=== PATIENT | female | born 1970 | race Caucasian/White ===

== ENCOUNTER 2025-02-15 03:42 | Emergency (ER) | payer MEDICAID ==
[~2025-02-15] VITALS: Ht 160 cm; Wt 127.5 kg
--- NOTE | 2025-02-15 03:45 | Physician Documentation ---
History of Present Illness ~ Stated Complaint: RESPITORY DISTRESS Time Seen by MD: 03:44 HPI Patient presents to the emergency room brought in by EMS in severe respiratory distress on BiPAP. Patient apparently had a normal day and then while getting out of the shower this evening began having an asthma exacerbation. EMS on scene noted that patient was blue and has one word sentence. They place patient on BiPAP and gave duo neb and patient had significant improvement. They also administered some nitroglycerin. Patient has reported history of COPD but no CHF. States that she does use meth but not tonight. Medication Reconciliation Allergies: Coded Allergies: Penicillins (Verified Allergy, Unknown, 02/15/25) Review of Systems ROS All review of systems negative except as per HPI Physical Exam Physical Exam General: Patient is awake, alert, oriented x4 in severe respiratory distress Head: Normocephalic and atraumatic. Eyes: Conjunctival normal. EOMI. PERRL. ENT: Mucous membranes moist. Neck: Supple, trachea is midline. Chest: Clear to auscultation bilaterally without rales, rhonchi, or wheezes. On BiPAP, tachypneic Cardiac: Tachycardic and regular without murmurs, gallops, or rubs. Abd: Soft, nondistended, nontender, with normoactive bowel sounds. No guarding, rebound, or rigidity. Progress Results/Orders Results/Orders Orders - THIAGO WEBSTER MD Chest,Single View (02/15/25 04:04) Monitor (02/15/25 03:44) Hs Troponin I W Calculations (02/15/25 05:44) Hs Troponin I W Calculations (02/15/25 06:44) Urinalysis, Cult If Indicated (02/15/25 03:50) Drug Screen, Urine (02/15/25 03:50) Covid19 Binax Poc Result Entry (02/15/25 03:57) Completed Orders - THIAGO WEBSTER MD Electrocardiogram (02/15/25 03:44) Cbc/Diff (02/15/25 03:44) Chest,Single View (02/15/25 04:04) Methylprednisolone Sod Succ (Solumedrol (02/15/25 03:45) PBNP (02/15/25 03:44) BMP (02/15/25 03:44) Hs Troponin I W Calculations (02/15/25 03:44) Procalcitonin (02/15/25 03:50) Medications Received in ER Medications (Trade) Dose Ordered Sig/Marta Route PRN Reason Start Time Stop Time Status Last Admin Dose Admin (SoluMEDROL 125mg inj) 125 mg ONCE ONCE IV 02/15/25 03:45 02/15/25 03:52 DC 02/15/25 03:58 125 MG Vital Signs 02/15/25 02/15/25 02/15/25 02/15/25 03:43 03:49 04:04 04:28 Pulse 116 107 Resp 45 22 22 B/P (MAP) 153/96 121/75 (90) Pulse Ox 97 97 95 O2 Delivery BiPAP+ O2 Flow Rate 5.0 FiO2 100 02/15/25 05:10 Pulse 102 Resp 22 B/P (MAP) 157/92 (113) Pulse Ox 96 O2 Flow Rate 2.0 Laboratory Tests Test 02/15/25 03:43 White Blood Count 6.1 Red Blood Count 4.30 Hemoglobin 14.5 Hematocrit 42.7 Mean Corpuscular Volume 99.4 H Mean Corpuscular Hemoglobin 33.6 H Mean Corpuscular Hemoglobin Concent 33.8 Red Cell Distribution Width 13.7 Platelet Count 209 Mean Platelet Volume 7.5 Neutrophils (%) (Auto) 55.7 Lymphocytes (%) (Auto) 28.3 Monocytes (%) (Auto) 10.7 Eosinophils (%) (Auto) 4.6 Basophils (%) (Auto) 0.7 Neutrophils # (Auto) 3.4 Lymphocytes # (Auto) 1.7 Monocytes # (Auto) 0.7 Eosinophils # (Auto) 0.3 Basophils # (Auto) 0.0 CBC Comment Sodium Level 138 Potassium Level 3.6 Chloride Level 104 Carbon Dioxide Level 24.7 Anion Gap 9 Blood Urea Nitrogen 11 Creatinine 1.18 H Estimated GFR/1.73 m2 48 BUN/Creatinine Ratio 9.3 L Glucose Level 203 H Calcium Level 9.0 Troponin I High Sensitivity 45 Pro-B-Type Natriuretic Peptide 44 Albumin 3.0 L Procalcitonin < 0.05 Chemistry Comments SARS-CoV-2 Antigen (Rapid) Negative EKG/XRAY/CT/US/VASC/MRI EKG : Additional Comment EKG interpreted by myself shows time of 0346, rate 111, sinus tachycardia, normal axis, no ST changes Chest X-Ray : Additional Comments Exam: CHEST,SINGLE VIEW CHEST RADIOGRAPH Indication: SOB Technique: 2 frontal chest radiographs were obtained. Comparison: None FINDINGS: Lines and Tubes: None Lungs: Bilateral increased interstitial prominence. No focal consolidation. Pleura: No effusion. No pneumothorax. Cardiomediastinal contours: Unremarkable Bones: No acute osseous abnormality. IMPRESSION: 1. Pulmonary vascular congestion. Medical Decision Making Findings Patient presents to the emergency room for evaluation of shortness of breath as per HPI. Differentials include but are not limited to COPD exacerbation, CHF exacerbation, pneumothorax, pulmonary embolism therefore emergent labs and imaging indicated. Patient was responded to treatment it is now doing much better. She states she feels like herself and would like to go home. Offered admission. She passed the road test. ER precautions discussed given patient's response and course in the emergency room and he had not feel she requires investigation into potential pulmonary embolism. Departure Disposition: 01 HOME / SELF CARE / HOMELESS Impression: Primary Impression: Acute exacerbation of chronic obstructive airways disease Condition: Improved Discharge Instructions: Chronic Obstructive Pulmonary Disease Exacerbation Referrals: NO PRIMARY CARE PROVIDER (PCP) Prescriptions Azithromycin (Zithromax) 250 Mg Tablet 250 MG PO DAILY, #6 TAB Take 2 tabs on day one, one tab daily thereafter Prov: THIAGO WEBSTER MD 02/15/25 Prednisone* (Prednisone*) 20 Mg Tablet 1 TAB PO DAILY for 5 Days, #5 TAB Prov: THIAGO WEBSTER MD 02/15/25 Albuterol Sulfate (Ventolin Hfa) 90 Mcg Hfa.aer.ad 2 PUFFS IH 5XD, #1 EACH Prov: THIAOG WEBSTER MD 02/15/25 Education Educated: Patient Educated regarding: diagnosis, treatment, need for follow up Signature Scribe Signature: no scribe Attestation: The note accurately reflects work and decisions made by me.Thiago Webster MD 02/15/25 05:56 THIAGO WEBSTER MD Feb 15, 2025 03:45
--- NOTE | 2025-02-15 03:49 | ELECTROCARDIOGRAPH REPORT ---
[facility] Test Date: 2025-02-15 Test Time: 03:46:48 Pat Name: LAURA YOUSSEF Department: EMERGENCY ROOM Room: Gender: F Director Of Medical Services: RAMIRO : 1970 Requested By: DESTINY SALGADO Order Number: [id number] Reading MD: Measurements Intervals [place] Rate: 111 P: 47 WI: 131 QRS: 92 QRSD: 73 T: 25 QT: 329 QTc: 447 Interpretive Statements Sinus tachycardia Borderline right axis deviation Please click the below link to view image of tracing.
[2025-02-15 04:04] LABS: MEAN PLATELET VOLUME 7.5 FL (7.4-10.4); RED CELL DISTRIBUTION WIDTH 13.7 % (11.5-14.5)
[2025-02-15 04:51] LABS: CREATININE 1.18 MG/DL (0.40-0.90); PRO BRAIN NATRIURETIC PEPTIDE 44 PG/ML (0-125); TOTAL CARBON DIOXIDE 24.7 MMOL/L (24-32); eCRCL 46 ML/MIN; eGFR 48 ML/MIN
--- NOTE | 2025-02-15 05:02 | RADIOLOGY REPORT ---
CHEST RADIOGRAPH Indication: SOB Technique: 2 frontal chest radiographs were obtained. Comparison: None FINDINGS: Lines and Tubes: None Lungs: Bilateral increased interstitial prominence. No focal consolidation. Pleura: No effusion. No pneumothorax. Cardiomediastinal contours: Unremarkable Bones: No acute osseous abnormality. IMPRESSION: 1. Pulmonary vascular congestion.
[2025-02-15] MEDS ORDERED: ALBU18HF2 IH (05:56)
[2025-02-15] MEDS ORDERED: AZIT-164 PO (05:56)
[2025-02-15] MEDS ORDERED: PRED20TA PO (05:56)
[2025-02-15 06:11] VITALS: BP 112/68; PULSE 98; RESP 20; O2SAT 93
== END 2025-02-15 06:12 | disposition home or self-care (01) ==
LOC: ER 03:43
DX: J44.1 Chronic obstructive pulmonary disease with (acute) exacerbation (principal); Z88.0 Allergy status to penicillin; Z20.822 Contact with and (suspected) exposure to COVID-19
CPT/HCPCS: 36415; 71045; 80048; 83880; 84145; 84484; 85025; 87811; 93005; 96374; 99285; J2919